=== PATIENT | male | born 1955 | race African-American/Black ===

== ENCOUNTER → 2016-12-19 | Outpatient (CLI) | payer OTHER ==
--- NOTE | ~2016-12-19 | MR17 ---
[facility] A Service of [facility] RADIOLOGY TEXT RESULTS PATIENT: CHEYENNE ALVARADO LOCATION: [facility] : 59 UNIT #: [id number] AGE: [address]: RICARDO PARDO MD SEX: M ORDER DR: [id number] [facility] [address] [place], [place] [address] [id number] O MR#: [id number] Acc #: [id number] NAME: CHEYENNE ALVARADO : 1955 SEX: M STUDY DATE/TIME: 12/19/2016 19:57 UNIT: [facility] ROOM: STUDY DESCRIPTION: MR Brain WWo Contrast Attending Physician: Ricardo Pardo M.D. Ordering Physician: Ricardo Pardo M.D. Primary Care Physician: Oswaldo Patten M.D. MRI CENTER REPORT This report is preliminary unless electronic signature is present. EXAM MRI of the brain with and without contrast 12/19/2016 HISTORY Malignant neoplasm upper lobe bronchus. Right. Observe for suspected intracranial metastatic disease. COMMENT MRI of the brain was performed prior to and following intravenous administration of 15 mL MultiHance using routine 1.5T imaging technique. COMPARISON STUDIES There is a PET CT from 12/18/[address] from 03/15/2016. FINDINGS No evidence for a recent ischemic insult on the diffusion series. No Chiari-I malformation. No MRI evidence for intracranial hemorrhage. No extraaxial fluid collection. 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 The patient appears to have an anterior dominant circulation from large bilateral posterior communicator. There is mild mucosal disease in the ethmoid air cells but there is no sinus air-fluid level and only a small amount of fluid or inflammatory change in the mastoid tips bilaterally. The distal left vertebral artery is also hypoplastic or diseased. Patchy signal abnormality in the deep and periventricular white matter is nonspecific but probably due to small vessel disease in age group. Tiny lacunar type insults in the basal ganglia also. Following contrast administration, there is no pathologic intracranial enhancement. No intracranial mass lesion or mass effect. No evidence for intracranial metastatic disease. IMPRESSION 1. No evidence for intracranial metastatic disease. [facility] A Service of [facility] RADIOLOGY TEXT RESULTS PATIENT: CHEYENNE ALVARADO LOCATION: [facility] : 59 UNIT #: [id number] AGE: [address]: RICARDO PARDO MD SEX: M ORDER DR: 2. Mild probable sequelae of small vessel disease. Dictated by... Pascale Pastor M.D. THIS IS AN ELECTRONICALLY VERIFIED REPORT Pascale Pastor M.D. at 12/20/2016 7:02 PM [place] TD: 12/20/2016 17:22 JOB #: [id number] MRI CENTER REPORT Page 1 of 1 COPY
== END | disposition home or self-care (01) ==
LOC: CMRI 19:16
DX: C34.11 Malignant neoplasm of upper lobe, right bronchus or lung (principal); R93.0 Abnormal findings on diagnostic imaging of skull and head, not elsewhere classified
CPT/HCPCS: 70553; A9577